=== PATIENT | female | born 1945 | race Asian ===

== ENCOUNTER → 2022-06-23 | Outpatient (CLI) | payer MEDICARE, OTHER | END | disposition home or self-care (01) | LOC: RADPV 13:40 | PROVIDERS: ATTEND Family Medicine | DX: M85.88 Other specified disorders of bone density and structure, other site (principal); Z76.89 Persons encountering health services in other specified circumstances; Z87.310 Personal history of (healed) osteoporosis fracture | CPT/HCPCS: 77080 ==